=== PATIENT | female | born 1960 | race Caucasian/White ===

== ENCOUNTER → 2019-10-20 14:36 | Outpatient (BNVA) | payer MEDICARE, MEDICAID, SELFPAY | PROVIDERS: Family Provider Emergency Medicine; PCP Emergency Medicine; Visit Provider Family Medicine | DX: K74.60 Unspecified cirrhosis of liver (principal); J44.9 Chronic obstructive pulmonary disease, unspecified; Z13.220 Encounter for screening for lipoid disorders; Z13.6 Encounter for screening for cardiovascular disorders; Z13.1 Encounter for screening for diabetes mellitus; R73.9 Hyperglycemia, unspecified; J01.90 Acute sinusitis, unspecified; G47.00 Insomnia, unspecified | CPT/HCPCS: 80053; 80061; 83036; 85025; 85610 ==

== ENCOUNTER → 2019-11-20 14:43 | Outpatient (BNVA) | payer MEDICARE, MEDICAID, SELFPAY | PROVIDERS: Family Provider Emergency Medicine; PCP Emergency Medicine; Visit Provider Psychiatry & Neurology Psychiatry | DX: F11.21 Opioid dependence, in remission (principal); F41.1 Generalized anxiety disorder; F33.2 Major depressive disorder, recurrent severe without psychotic features | CPT/HCPCS: 99204 ==